=== PATIENT | female | born 1960 | race Native Hawaiian/Other Pacific Islander ===

== ENCOUNTER 2021-08-12 17:32 | Observation (INO) | payer BC ==
[~2021-08-12] VITALS: Ht 10.2 cm; Wt 82.3 kg
[2021-08-12 17:53] LABS: BASO # 0.1 K/mm3 (0.0-0.2); BASO % 0.8 % (0.0-2.0); EOS # 0.2 K/mm3 (0.0-0.7); EOS % 2.6 % (0.0-4.0); GRAN # 5.1 K/mm3 (1.4-6.5); GRAN % 59.1 % (42.2-75.2); HEMATOCRIT 38.4 % (37.0-47.0); HEMOGLOBIN 12.7 g/dl (12.5-16.0); LYMPH # 2.6 K/mm3 (1.2-3.4); LYMPH % 30.5 % (20.0-51.0); MEAN CELL VOLUME 84 fl (80.0-100.0); MEAN CORPUSCULAR HEMOGLOBIN 28 pg (27-31); MEAN CORPUSCULAR HGB CONC 33 g/dl (33.0-37.0); MEAN PLATELET VOLUME 9.3 fl (7.4-10.4); MONO # 0.6 K/mm3 (0.1-0.6); MONO % 6.5 % (1.7-9.3); PLATELET COUNT 413 K/mm3 (130-400); REDCELL DISTRIBUTION WIDTH-CV 13.2 % (11.5-14.5)
[2021-08-12 18:07] LABS: ALBUMIN 4.4 gm/dL (3.5-5.0); BILIRUBIN,TOTAL 0.8 mg/dL (0.2-1.2); CALCIUM 9.4 mg/dL (8.4-10.2); CREATININE, serum 0.62 mg/dL (0.57-1.11); POTASSIUM 3.4 mmol/L (3.5-4.5); TOTAL PROTEIN 7.7 gm/dL (6.2-8.1)
[2021-08-12 18:15] LABS: TROPONIN-I 0.042 ng/mL (0.00-0.033)
[2021-08-12] MEDS ORDERED: NEURONTIN300 MG/CAP PO (18:18)
[2021-08-12] MEDS ORDERED: PRILOSEC 20MG20 MG PO (18:19)
[2021-08-12] MEDS ORDERED: SINGULAIR 110 MG/TAB PO (18:19)
[2021-08-12] MEDS ORDERED: LIPITOR 10MG10 MG PO (18:20)
[2021-08-12] MEDS ORDERED: MULTI VITAMINS1 TAB PO (18:20)
[2021-08-12] MEDS ORDERED: VALTREX1 GM PO (18:23)
[2021-08-12] MEDS ORDERED: ALLEGRA 180MG180 MG PO (18:23)
[2021-08-12] MEDS ORDERED: TREMFYA100 MG/1 M SQ (18:25)
[2021-08-12] MEDS ORDERED: [UNRECOGNIZED DRUG - OTHER] PO (18:26)
[2021-08-12 20:28] LABS: COLLECTION METHOD CLEAN CATCH
[2021-08-12 20:45] LABS: MUCOUS Present (NOT PRESENT); PH 8 (5-8); SQUAMOUS EPITHELIAL 0-2 /hpf (0-10); URINE APPEARANCE Cloudy (CLEAR/HAZY); URINE BACTERIA None Seen /hpf (NONE SEEN); URINE BILIRUBIN Negative (NEGATIVE); URINE BLOOD Negative (NEGATIVE); URINE COLOR Yellow (YELLOW); URINE GLUCOSE Negative (NEGATIVE); URINE KETONE 2+ (NEGATIVE); URINE LEUKOCYTE ESTERASE Negative (NEGATIVE); URINE NITRATE Negative (NEGATIVE); URINE PROTEIN(semi-quant) 2+ (NEGATIVE); URINE UROBILINOGEN Negative (NEGATIVE)
--- NOTE | 2021-08-12 22:40 | NUR ---
Pt transferred up from the ED to room 352.
[2021-08-12 22:54] LABS: CHOLESTEROL RISK RATIO 4.4
[2021-08-12] MEDS ORDERED: ASPIRIN 81M81 MG/TA2 PO (22:55)
[2021-08-12 23:14] LABS: TSH w REFLEX 0.375 uIU/mL (0.350-4.940)
[2021-08-12 23:59] VITALS: BP 127/72; PULSE 76; TEMP 98
--- NOTE | 2021-08-13 00:16 | NUR ---
Started the 100 ml bag of potassium concurrent with NS at 100ml /hr. Pt reported "untolerable" pain within 5 minutes of starting the fluids. I decreased the rate of potassium from 100ml/hr to 75ml/hr. Pt still reported extreme "burning pain and pressure" in the arm and asked me to turn off the potassium because she "could not tolerate it". I paused the potassium and let the NS continue to run at 100ml/hr. I called DANIEL Daniel and notified her. Potassium 100 ml bag has been d/c'd and the NS at 100 ml/hr has been dc'd. A new order for NS with 20 of potassium at 125 ml/hr has been ordered. Will continue to monitor pt.
--- NOTE | 2021-08-13 00:44 | NUR ---
Pt brought up from ED around 2240. Alert and oriented x4. Shift assessment performed. Admission intake and admission assessment completed. Med rec reviewed with pt. Allergies confirmed. Covid and infectious disease questionare completed. Pt denies pain. Reports feeling dizzy at rest when she turns her head side to side and when OOB. States nausea in under control at this time. No new vomiting since being on the unit. Pt is independent. Up to void. Resting in bed now. IV in RAC from ED. Skin is clear, no edema noted. Pupils are equal are reactive, 4mm. Pt is calm, cooperative, and follows verbal commands. Reports a mild headahce, but states it is tolerable and does not need prn pain medication. Oriented to room. Provided clear liquids to pt. Medications administered to pt and education provided. IV fluids will be started at 125 ml/hr. Vital signs stable. Will continue to monitor. No concerns at this time.
[2021-08-13 00:59] LABS: MAGNESIUM 2.2 mg/dL (1.6-2.6)
[2021-08-13 01:09] LABS: TROPONIN-I 6 HR POST INITIAL 0.048 ng/mL (0.00-0.033)
--- NOTE | 2021-08-13 01:17 | NUR ---
Critical troponin lab value of 0.048 reported to me from lab. Notified DANIEL Daniel of the lab value. The following orders were made:\ 1. Troponin lab ordered again for 0500 2.Cardiology consult ordered
--- NOTE | 2021-08-13 04:45 | NUR ---
Pt resting, asleep in bed. Remains alert and oriented. IV fluids currently running at 125 ml/hr. Lung sounds remain clear and no new edema noted. Pt does not report any acute pain. No vomiting overnight and nausea is controlled. Pt still reports dizziness when she turns her head. MRI ordered for today. Pt continues on a clear liquid diet. Vital signs remain stable. Pt independent when OOB and to bathroom. Educated pt on utilizing the call mahoney before getting OOB, since she is still dizzy. Cotninuing Q4 neuro checks. Pt reports no questions at this time. Will continue to monitor.
[2021-08-13 04:53] VITALS: BP 103/58; PULSE 69; TEMP 98.1
[2021-08-13 06:27] LABS: CALCIUM 8.6 mg/dL (8.4-10.2); CREATININE, serum 0.52 mg/dL (0.57-1.11); POTASSIUM 3.7 mmol/L (3.5-4.5)
[2021-08-13 06:46] LABS: TROPONIN-I 0.037 ng/mL (0.00-0.033)
[2021-08-13 07:22] VITALS: BP 107/60; PULSE 65; TEMP 98.5
--- NOTE | 2021-08-13 09:30 | NUR ---
PT LAYING SUPINE IN BED ON ROOM AIR. PT STATES THAT SHE JUST WORKED WITH P.T. AND IS FEELING "NAUSEA AND DIZZY." GAVE PT SOME ZOFRAN. PT STATES THAT SHE DOES NOT WANT TO TAKE ANY PO MEDS AT THIS TIME BECAUSE SHE IS AFRAID THAT SHE WILL NOT BE ABLE TO KEEP THEM DOWN. PO MEDS WILL BE GIVEN LATER WHEN PT FEELS BETTER. PT STATES NO PAIN OR OTHER NEEDS AT THIS TIME. CALL LIGHT IS WITHIN REACH.
--- NOTE | 2021-08-13 09:42 | NUR ---
PT LAYING SUPINE IN BED ON ROOM AIR. PT STATES THAT SHEIS HAVING A LOT OF NAUSEA. ZOFRAN WAS GIVEN. PT STATES THAT SHE DOES NOT WANT TO TAKE ANY MEDICAION BY MOUTH AT THIS TIME BECAUSE SHE IS AFRAID THAT SHE WILL THROW THEM UP. TURNED THE LIGHTS OUT AND GAVE PT A COLD WASHCLOTH FOR HEAD. NO OTHER NEEDS ARE VOICED AT THIS TIME. FAMILY IS AT BEDSIDE. CALL LIGHT IS WITHIN REACH.
--- NOTE | 2021-08-13 09:46 | NUR ---
TAISHA met with the patient and her , Carlyle (ph#[phone]), to discuss discharge plan. The patient lives in [place] with her and their three children. Carlyle reports that the patient is independent with ADLs and does not have any DME. The patient's PCP is Dr. Larry Miller and she receives her medications from [facility]. The patient does not have a DPOA-HC and they were not interested in completing one while here. The patient plans on returning home with her family upon discharge. No additional needs at this time. *Discharge plan: home with family*
[2021-08-13 11:42] VITALS: BP 126/64; PULSE 67; TEMP 98
[2021-08-13] MEDS ORDERED: ASPIRIN E.C. 8181 MG PO (12:26)
[2021-08-13] MEDS ORDERED: BENADRYL25 M2 PO (12:29)
--- NOTE | 2021-08-13 13:11 | NUR ---
First visit from the sueding and buffing machine operator. No needs right now.
[2021-08-13 16:24] VITALS: BP 104/52; PULSE 74; TEMP 98.1
--- NOTE | 2021-08-13 18:28 | NUR ---
PT UP AT SINK. PT ON ROOM AIR. PT STATES THAT SHE IS NOT HAVING ANY NAUSEA AT THIS TIME. PT STATES THAT SHE STILL IS DIZZY. "IT IS JUST THERE ALL THE TIME." PT STATES THAT SHE WAS ABLE TO TOLERATE HER LUNCH WELL AND IS GOING TO ORDER DINNER LATER. PT STATES NO NEEDS AT THIS TIME. CALL LIGHT IS WITHIN REACH.
[2021-08-13 21:45] VITALS: BP 106/44; PULSE 75; TEMP 98.3
[2021-08-14 00:20] VITALS: BP 112/51; PULSE 70; TEMP 98.2
--- NOTE | 2021-08-14 02:08 | NUR ---
Pt alert and oriented this evening. Resting in bed. Reports no acute pain currently. Administered prn tylenol earlier this evening for pain. She does report that she still feels dizzy when turning her head side to side. Pt requested benadryl for nasal congestion and to help her sleep. Notified the provider communications systems engineer. Benadryl was ordered and administered. Pt up and independent in the room. Shift assessment performed. Medications administered and education provided. No new changes tonight. Vital signs are stable. Pt reports no questions at this time, will continue to monitor.
[2021-08-14 04:22] VITALS: BP 109/65; PULSE 64; TEMP 98.1
--- NOTE | 2021-08-14 06:03 | NUR ---
No events overnight. Pt alert and oriented when awake, resting currently. Administered tylenol prn and one benadryl for pain and nasal congestion. No complaints overnight. Vital signs remain stable. Pt is independent. Pt reports no questions at this time. Will continue to monitor.
[2021-08-14 07:00] LABS: BASO # 0.1 K/mm3 (0.0-0.2); BASO % 1.2 % (0.0-2.0); EOS # 0.2 K/mm3 (0.0-0.7); EOS % 4.9 % (0.0-4.0); GRAN # 1.7 K/mm3 (1.4-6.5); GRAN % 35.9 % (42.2-75.2); HEMOGLOBIN 11.2 g/dl (12.5-16.0); LYMPH # 2.4 K/mm3 (1.2-3.4); MEAN CELL VOLUME 88 fl (80.0-100.0); MEAN CORPUSCULAR HEMOGLOBIN 28 pg (27-31); MEAN CORPUSCULAR HGB CONC 32 g/dl (33.0-37.0); MEAN PLATELET VOLUME 9.7 fl (7.4-10.4); MONO # 0.4 K/mm3 (0.1-0.6); MONO % 7.8 % (1.7-9.3); RED BLOOD COUNT 4.04 M/mm3 (4.10-5.30); REDCELL DISTRIBUTION WIDTH-CV 13.5 % (11.5-14.5)
[2021-08-14 07:08] LABS: HEMATOCRIT 35.5 % (37.0-47.0); PLATELET COUNT 283 K/mm3 (130-400)
[2021-08-14 07:20] LABS: CALCIUM 8.5 mg/dL (8.4-10.2); CREATININE, serum 0.6 mg/dL (0.57-1.11); POTASSIUM 3.6 mmol/L (3.5-4.5)
[2021-08-14 08:02] VITALS: BP 101/48; PULSE 62; TEMP 98.1
--- NOTE | 2021-08-14 10:10 | NUR ---
PT PLEASANT, AOX4, DENIES PAIN, REPORTS SOME DIZZINESS WITH INC QUICK MOVEMENTS BUT NOT WHEN UP AND MOVING IN THE ROOM, EDUCATED ON MEDICATIONS, ASSESSMENT PERFORMED, NO OTHER NEEDS.
[2021-08-14] MEDS ORDERED: LIPITOR 40MG TA40 MG PO (10:47)
[2021-08-14 11:11] VITALS: BP 99/54; PULSE 68; TEMP 97.7
--- NOTE | 2021-08-14 13:00 | NUR ---
pt left via wheelchair with pt belongings. no other needs
== END 2021-08-14 13:00 | disposition home or self-care (01) ==
LOC: COL.ER 17:32 → MEDICAL 21:14
PROVIDERS: Nurse Practitioner Family; Physician Assistant; ADMIT Internal Medicine
DX: R42 Dizziness and giddiness (principal); R53.1 Weakness; E87.6 Hypokalemia; L40.50 Arthropathic psoriasis, unspecified; K21.9 Gastro-esophageal reflux disease without esophagitis; I08.3 Combined rheumatic disorders of mitral, aortic and tricuspid valves; Z88.8 Allergy status to other drugs, medicaments and biological substances
CPT/HCPCS: 99233-AI; 99239; A9575; G0378; J1650; J2405; J2550; J3480; J7030; J7120; Q9967